=== PATIENT | female | born 1955 | race Caucasian/White ===

== ENCOUNTER 2019-11-01 00:25 | Inpatient (IN) | payer MEDICAID ==
[~2019-11-01] VITALS: Ht 167.6 cm; Wt 127.9 kg
[2019-11-01] VITALS (58 sets, daily range): BP systolic 89–165; BP diastolic 43–83
--- NOTE | ~2019-11-01 | CON ---
[address] [address] CONSULTATION Name: ABA ANDRES Room: [address] IN M.R.#: [id number] Admission: 11/01/19 Attend Phys: Juaquin Manuel Discharge: Date of : 51 Report #: [id number] THIS REPORT FOR: //name// cc: Norma Adorno MD, Kristin E. MD ~ THIS REPORT FOR: //name// CC: Juaquin Jean-Baptiste CARDIOLOGY CONSULTATION HISTORY OF PRESENT ILLNESS: I was asked by Dr. Milligan to see this 64-year-old white female in cardiology consultation for evaluation and treatment of a possible non-ST segment elevation LA. This lady unfortunately lives in a halfway. She has had multiple CVAs in the past and she is currently intubated, sedated, on a ventilator and unresponsive. She cannot give a history. She was admitted with influenza A with pneumonia and acute respiratory failure. She does have a history of essential hypertension, hypothyroidism, hypercholesterolemia and seizure disorder as best I can tell from the chart. She had a troponin of 0.23 on admission. I do not believe that I saw a BNP. Her EKG shows normal sinus rhythm. There are nonspecific ST-T abnormalities that are fairly diffuse. There is abnormal R-wave progression and an old anterior infarct cannot be excluded. The computer called an old inferior infarct; however, I see R waves in front of all of the QRSs in 2, 3, and aVF, although they are quite small in 3 as well as aVF. There is clearly late transition in the precordial R-wave. There have not been any further troponins reported at this point, however, I did order some more. There is no record of whether or not she complained of chest pain. Additionally, her acute respiratory failure is complicated by shock. She has been getting fluids and Levophed to support her blood pressure. She is only requiring a small amount of Levophed, however. PAST MEDICAL HISTORY: Otherwise as described above. REVIEW OF SYSTEMS: Unobtainable. FAMILY HISTORY: Unobtainable. SOCIAL HISTORY: Unobtainable. MEDICATIONS: Her medications include hydrochlorothiazide 12.5 mg daily, levothyroxine 0.05 mg daily, aspirin 325 mg daily, vitamin D 10,000 units daily, simvastatin 20 mg at bedtime, methotrexate 2.5 mg 8 tablets weekly, and phenytoin 100 mg t.i.d. as well as various PRNs. PHYSICAL EXAMINATION: [address] [place] [address] CONSULTATION Name: ABA ANDRES Room: [address] IN M.R.#: [id number] Admission: 11/01/19 Attend Phys: Juaquin Manuel Discharge: Date of : 51 Report #: [id number] GENERAL: She presents as an elderly, well-developed, well-nourished white female, in no acute distress. HEENT: Her head is atraumatic. Eyes clear. NECK: Supple. There is no jugular venous distention or hepatojugular reflux. Thyroid is not enlarged. There is no adenopathy. SKIN: Warm and dry. Mucous membranes are moist. LUNGS: Clear to auscultation and percussion. HEART: Revealed normal first and second heart sound. There is soft S4. There is no S3. There are no murmurs, rubs, thrills, heaves or gallops. PMI is nondisplaced. ABDOMEN: Soft, flat, nontender. There are no palpable masses, no organomegaly. EXTREMITIES: Reveal no cyanosis, clubbing or edema. NEUROLOGIC: The patient was intubated, sedated, on the ventilator and unresponsive. IMPRESSION: 1. Elevated troponin, possible non-ST segment elevation myocardial infarction. 2. Status post multiple cerebrovascular accidents. 3. alf status. 4. Influenza A. 5. Pneumonia. 6. Acute respiratory failure. 7. Essential hypertension. 8. Hypothyroidism. 9. Hypercholesterolemia. 10. Seizure disorder. RECOMMENDATIONS: I would simply document the troponin elevation at this point and follow her. She is currently not a candidate for any kind of imaging. Check BNP and she may ultimately need a nuclear stress test, however, that depends on how things go. Thank you very much for asking me to see the patient. If there are any questions, please feel free to contact me. By: [id number]. Nikhil Machado MD, FACC /nt
[~2019-11-01 00:25] MED LIST: ASPIRIN EC325 M1 PO; ASPIRIN325 PO; CALCIUM 600 +1 EAC8 PO; CALCIUM 600 +1 EAC9 PO; CELEBREX 200 M200 M1 PO; CELEBREX 200 M200 MG PO; CICLOPIROX30 GM TP; CIPROFLOXACIN500 M1 PO; DILANTIN100 MG PO; DILANTIN30 MG PO; DULCOLAX5 MG PO; FOLIC ACID 1 MG1 MG PO; FOLIC ACID1 MG PO; HYDROCHLOROTH12.5 M1 PO; HYDROCHLOROTH12.5 MG PO; HYDROCHLOROTHIA25 M2 PO; HYDROCODON-ACE1 EAC1 PO; HYDROCODON-ACE1 EAC8 PO; IBUPROFEN 800800 M1 PO; LEVOTHYROXINE0.05 MG PO; LIDODERM 5%1 PATCH; LIDODERM 5%1 PATCH PO; LIDODERM 5%1 PATCH TOP; LOVENOX40 MG/0.4 SQ; METHOTREXATE 22.5 MG PO; NORCO 10-325 T1 EACH PO; NYAMYC15 GM TOP; OS-CAL ULTRA T1 EACH PO; PHENYTOIN SODI100 M3 PO; PREDNISOLONE 5 M5 M1 PO; PREDNISONE 10 M10 MG PO; PREDNISONE 5 MG5 M1 PO; RANITIDINE HCL300 M1 PO; SIMVASTATIN20 MG PO; SIMVASTATIN80 MG PO; SKELAXIN 800 M800 M1 PO; SKELAXIN 800 M800 MG PO; SYNTHROID PO; SYNTHROID50 MCG PO; TIZANIDINE HCL4 M1 PO; VITAMIN D1000 UNI1 PO; VITAMIN D32000 UNI2 PO; VOLTAREN GEL 1100 G1 TOP; ZANTAC 150MG T150 M1 PO; ZOCOR 20 MG TAB20 M1 PO; ZOFRAN ODT4 MG PO
[2019-11-01] MEDS ORDERED: MUCINEX600 MG PO (00:33)
[2019-11-01] MEDS ORDERED: CELEXA 10 MG TA10 M1 PO (00:35)
[2019-11-01] MEDS ORDERED: MIRALAX119 GM PO (00:36)
[2019-11-01] MEDS ORDERED: VITAMIN D325 MC3 PO (00:37)
[2019-11-01] MEDS ORDERED: ARTIFICIAL TEAR1510 OPHTHALMIC (00:40)
[2019-11-01 00:49] LABS: ABSOLUTE EOSINOPHILS 0.2 thou/uL (0.0-0.7); ABSOLUTE LYMPHOCYTES 4.8 thou/uL (0.8-5.3); ABSOLUTE NEUTROPHILS 5.8 thou/uL (1.6-8.1); BASOPHILS 0.2 %; EOSINOPHILS 1.3 %; HEMATOCRIT 41.4 % (37.0-47.0); HEMOGLOBIN 13.3 gm/dL (12.0-15.0); LYMPHOCYTES 40.5 %; MCH 29.7 pg (26.0-34.0); MCHC 32.1 g/dL (28.0-37.0); MCV 92.7 fL (80.0-100.0); MONOCYTES 8.6 %; MPV 7.3 fl. (7.2-11.1); NUCLEATED RBCS 0 /100WBC; PLATELET COUNT* 190 thou/uL (150-400); POLYS 49.4 %; RBC 4.47 mil/uL (4.20-5.00); RDW-CV 15.2 % (10.5-14.5); WBC 11.8 thou/uL (4.0-11.0)
[2019-11-01 00:57] LABS: APTT 25.5 Seconds (25.0-31.3); PROTIME 10.2 Seconds (9.20-11.50)
[2019-11-01 01:11] LABS: CALCIUM 8.2 mg/dL (8.5-10.1); CREATININE 0.4 mg/dL (0.6-1.3); POTASSIUM 4.1 mmol/L (3.5-5.1)
[2019-11-01 01:21] LABS: ALBUMIN 2.7 g/dL (3.4-5.0); MAGNESIUM 1.9 mg/dL (1.8-2.4); TOTAL BILIRUBIN 0.1 mg/dL (<0.1-1.0); TOTAL PROTEIN 6.6 g/dL (6.4-8.2)
[2019-11-01 02:03] LABS: URINE BILIRUBIN NEGATIVE (Negative); URINE BLOOD 2+ (Negative); URINE CLARITY CLEAR; URINE COLOR YELLOW; URINE GLUCOSE-RANDOM TRACE (Negative); URINE KETONES NEGATIVE (Negative); URINE LEUKOCYTES-REFLEX NEGATIVE (Negative); URINE PROTEIN 2+ (Negative); URINE SPECIFIC GRAVITY >= 1.030 (1.005-1.030); URINE UROBILINOGEN 0.2 E.U./dl (0.2-1.0)
[2019-11-01 02:04] LABS: URINE NITRITE-REFLEX POSITIVE (Negative)
[2019-11-01 02:19] LABS: BE -3.1 mmol/L (-2 to +3)
[2019-11-01 02:21] LABS: PCO2 54.1 mmHg (35.0-45.0); pH 7.269 (7.340-7.450)
[2019-11-01 02:22] LABS: PO2 139.7 mmHg (75.0-100.0)
[2019-11-01 02:40] LABS: HYALINE CASTS 0-3 Few /LPF (None Seen); SQUAMOUS 4-10 Moderate /LPF (0-3)
[2019-11-01 02:41] LABS: BACTERIA-REFLEX >30 Many /HPF (None Seen); CRYSTALS None Seen /LPF (None Seen); URINE WBC-REFLEX 6-15 Few /HPF (0-5)
[2019-11-01 06:35] LABS: INFLUENZA A ANTIGEN Positive (Negative); INFLUENZA B ANTIGEN Negative (Negative)
[2019-11-01 09:24] LABS: CHOLESTEROL 136 mg/dL (<200); HDL CHOLESTEROL 55 mg/dL (>40); LDL CHOLESTEROL 55 mg/dL (<100); TC:HDL 2.5 Ratio (Not establshd); TRIGLYCERIDE 132 mg/dL (<150); VLDL 26 mg/dL (<40)
[2019-11-01 09:25] LABS: SERUM ASSESSMENT Clear
[2019-11-01 10:29] LABS: BE 1.3 mmol/L (-2 to +3); PCO2 36.9 mmHg (35.0-45.0); PO2 81.9 mmHg (75.0-100.0); pH 7.451 (7.340-7.450)
[2019-11-01 17:39] LABS: BE 0.3 mmol/L (-2 to +3); PCO2 VENOUS 52.3 mmHg (41.0-51.0); PO2 VENOUS 97.6 mmHg (35.0-45.0)
[2019-11-01 22:24] LABS: BE -0.1 mmol/L (-2 to +3); PCO2 42.5 mmHg (35.0-45.0); PO2 95.3 mmHg (75.0-100.0); pH 7.388 (7.340-7.450)
[2019-11-02] VITALS (48 sets, daily range): BP systolic 86–145; BP diastolic 49–98
[2019-11-02 03:51] LABS: HEMATOCRIT 30.3 % (37.0-47.0); MCH 30.5 pg (26.0-34.0); MCHC 33.7 g/dL (28.0-37.0); MCV 90.5 fL (80.0-100.0); MPV 7.1 fl. (7.2-11.1); RBC 3.35 mil/uL (4.20-5.00); RDW-CV 14.8 % (10.5-14.5); WBC 5.5 thou/uL (4.0-11.0)
[2019-11-02 04:06] LABS: HEMOGLOBIN 10.2 gm/dL (12.0-15.0)
[2019-11-02 04:16] LABS: ALBUMIN 1.7 g/dL (3.4-5.0); ALKALINE PHOSPHATASE 79 U/L (46-116); ANION GAP 4 mmol/L (7-16); BUN 9 mg/dL (7-18); CALCIUM 6.3 mg/dL (8.5-10.1); CHLORIDE 107 mmol/L (98-107); CO2 31 mmol/L (21-32); CREATININE 0.4 mg/dL (0.6-1.3); GLUCOSE 124 mg/dL (70-99); MAGNESIUM 1.4 mg/dL (1.8-2.4); SGOT 20 U/L (15-37); SGPT 19 U/L (30-65); SODIUM 142 mmol/L (136-145); TOTAL BILIRUBIN 0.1 mg/dL (<0.1-1.0); TROPONIN-I LEVEL <0.06 ng/mL (<0.06)
[2019-11-02 09:41] LABS: BE 0 mmol/L (-2 to +3); PCO2 44.9 mmHg (35.0-45.0); PO2 116.7 mmHg (75.0-100.0); pH 7.372 (7.340-7.450)
--- NOTE | 2019-11-02 15:04 | EKG ---
[place] [address] ELECTROCARDIOGRAM REPORT Name: ABA ANDRES Room: [address] ADM IN M.R.#: [id number] Admission: 11/01/19 Attend Phys: Juaquin krishna Sa Discharge: Date of : 51 Date of Service: 11/01/19 0040 Report #: [id number] THIS REPORT FOR: //name// [facility] ED Test Date: 2019-11-01 Test Time: 00:40:08 Pat Name: ABA ANDRES Department: Room: [facility] Gender: F Nanny Babysitter: RASHAUN : 1955 Requested By: Desmond Ribera Order Number: [id number] MD: Nikhil Machado Measurements Intervals [place] Rate: 106 P: 40 TN: 202 QRS: -15 QRSD: 97 T: 83 QT: 323 QTc: 429 Interpretive Statements Sinus tachycardia Abnormal R-wave progression, late transition Inferior infarct, old Lateral leads are also involved Compared to ECG 08/27/2015 08:56:21 Myocardial infarct finding now present Sinus rhythm no longer present Electronically Signed On 11-02-2019 15:03:12 FASHION EDITOR by Nikhil Machado [email or web address] <ELECTRONICALLY SIGNED> By: Lurdes Machado MD, [facility] 11/02/19 1503 Lurdes Machado MD, [facility] /EPI
[2019-11-03] VITALS (39 sets, daily range): BP systolic 117–171; BP diastolic 55–86
[2019-11-03 10:26] LABS: ABSOLUTE EOSINOPHILS 0.1 thou/uL (0.0-0.7); ABSOLUTE LYMPHOCYTES 1.7 thou/uL (0.8-5.3); ABSOLUTE MONOCYTES 0.5 thou/uL (0.0-1.2); ABSOLUTE NEUTROPHILS 4.4 thou/uL (1.6-8.1); BASOPHILS 0.5 %; HEMOGLOBIN 9.9 gm/dL (12.0-15.0); LYMPHOCYTES 25.2 %; MCH 30.2 pg (26.0-34.0); MCHC 33.2 g/dL (28.0-37.0); MONOCYTES 7.3 %; MPV 7.8 fl. (7.2-11.1); NUCLEATED RBCS 0 /100WBC; PLATELET COUNT* 166 thou/uL (150-400); WBC 6.6 thou/uL (4.0-11.0)
[2019-11-03 10:35] LABS: CALCIUM 6.7 mg/dL (8.5-10.1); CREATININE 0.4 mg/dL (0.6-1.3); MAGNESIUM 2.3 mg/dL (1.8-2.4); TOTAL BILIRUBIN 0.2 mg/dL (<0.1-1.0); TOTAL PROTEIN 5.4 g/dL (6.4-8.2)
--- NOTE | 2019-11-03 16:43 | EKG ---
[place] [address] ELECTROCARDIOGRAM REPORT Name: ABA ANDRES Room: [address] ADM IN M.R.#: [id number] Admission: 11/01/19 Attend Phys: Juaquin krishna Sa Discharge: Date of : 51 Date of Service: 11/02/19 0922 Report #: [id number] THIS REPORT FOR: //name// [facility] Test Date: 2019-11-02 Test Time: 09:22:16 Pat Name: ABA ANDRES Department: Room: [address] Gender: F Warp Hauler: M : 1955 Requested By: Lurdes Machado Order Number: [id number] Reading MD: Marc Frias Measurements Intervals [place] Rate: 57 P: 33 [place]: 203 QRS: 2 QRSD: 104 T: 9 QT: 481 QTc: 469 Interpretive Statements Sinus rhythm Low voltage, precordial leads Abnormal R-wave progression, early transition Compared to ECG 11/01/2019 00:40:08 Low QRS voltage now present Sinus tachycardia no longer present Myocardial infarct finding no longer present Electronically Signed On 11-03-2019 16:42:29 LEAD HOUSEKEEPER by Marc Frias [email or web address] <ELECTRONICALLY SIGNED> By: Marc Frias MD, [facility] 11/03/19 1642 1 1 Marc Frias MD, [facility] /EPI
--- NOTE | 2019-11-03 17:07 | 2DMMODE ---
[place] [address] 2 D/M-MODE ECHOCARDIOGRAM Name: ABA ANDRES Room: [address] IN M.R.#: [id number] Admission: 11/01/19 Attend Phys: Juaquin krishna Sa Discharge: Date of : 51 Date of Service: 11/03/19 1706 Report #: [id number] THIS REPORT FOR: cc: Norma Adorno MD, Kristin E. MD Holkins,Marc Gregorio MD [facility] ~ APPROVED REPORT Study performed: 11/03/2019 14:36:28 EXAM: Comprehensive 2D, Doppler, and color-flow Echocardiogram BSA: 2.32 HR: 98 bpm BP: 148/73 mmHg Other Information Study Quality: Technically Difficult Technically limited study due to uncooperative patient, body habitus. Indications Hypotension Dyspnea 2D Dimensions IVSd: 11.53 (7-11mm) LVOT Diam: 24.03 (18-24mm) LVDd: 38.15 mm PWd: 14.32 (7-11mm) Ascending Ao: 29.28 (22-36mm) LVDs: 25.86 (25-40mm) Aortic Root: 27.99 mm Volumes Left Atrial Volume (Systole) LA ESV Index: 17.70 mL/m2 Aortic Valve AoV Peak Aayush.: 1.31 m/s AO Peak Gr.: 6.91 mmHg LVOT Max P.40 mmHg AO Mean Gr.: 4.27 mmHg LVOT Mean P.36 mmHg LVOT Max V: 1.05 m/s AO V2 VTI: 27.05 cm LVOT Mean V: 0.72 m/s EDNA (VTI): 2.44 cm2 LVOT V1 VTI: 14.56 [place] [address] 2 D/M-MODE ECHOCARDIOGRAM Name: ABA ANDRES Room: [address] IN .R.#: [id number] Admission: 11/01/19 Attend Phys: Juaquin krishna Sa Discharge: Date of : 51 Date of Service: 11/03/19 1706 Report #: [id number] Mitral Valve E/A Ratio: 1.06 MV Decel. Time: 261.06 ms MV E Max Aayush.: 0.91 m/s MV PHT: 75.71 ms MVA (PHT): 2.91 cm2 TDI E/Lateral E': 6.50 E/Medial E': 5.69 Medial E' Aayush.: 0.16 m/s Lateral E' Aayush.: 0.14 m/s Pulmonary Valve PV Peak Aayush.: 1.14 m/s PV Peak Gr.: 5.17 mmHg Tricuspid Valve RAP Estimate: 5.00 mmHg TR Peak Gr.: 52.35 mmHg RVSP: 57.35 mmHg PA Pressure: 57.35 mmHg Left Ventricle The left ventricle is normal size. There is normal LV segmental wall motion. There is normal left ventricular wall thickness. Left ventricular systolic function is normal. The left ventricular ejection fraction is within the normal range. LVEF is 60-65%. Grade I - abnormal relaxation pattern. Right Ventricle The right ventricle is normal size. The right ventricular systolic function is normal. Atria The left atrium size is normal. The right atrium size is normal. Aortic Valve The aortic valve is normal in structure. No aortic regurgitation is present. There is no aortic valvular stenosis. Mitral Valve The mitral valve is normal in structure. Trace mitral regurgitation. No evidence of mitral valve stenosis. Tricuspid Valve The tricuspid valve is normal in structure. Mild tricuspid regurgitation. Moderate pulmonary [place] [address] 2 D/M-MODE ECHOCARDIOGRAM Name: ABA ANDRES Room: [address] IN M.R.#: [id number] Admission: 11/01/19 Attend Phys: Juaquin krishna Sa Discharge: Date of : 51 Date of Service: 11/03/19 1706 Report #: [id number] Pulmonic Valve The pulmonary valve is normal in structure. There is no pulmonic valvular regurgitation. Great Vessels The aortic root is normal in size. IVC is not visualized. Pericardium There is no pericardial effusion. <Conclusion> The left ventricle is normal size. There is normal left ventricular wall thickness. Left ventricular systolic function is normal. The left ventricular ejection fraction is within the normal range. LVEF is 60-65%. Grade I - abnormal relaxation pattern. The right ventricle is normal size. The left atrium size is normal. The aortic valve is normal in structure. The mitral valve is normal in structure. Trace mitral regurgitation. Mild tricuspid regurgitation. Moderate pulmonary hypertension. There is no pericardial effusion. There is normal LV segmental wall motion. <ELECTRONICALLY SIGNED> By: Marc Frias MD, FACC 11/03/191705 05 05 Marc Frias MD, FACC /INF
[2019-11-04] VITALS (14 sets, daily range): BP systolic 122–152; BP diastolic 58–95
[2019-11-04 05:11] LABS: HEMATOCRIT 30.9 % (37.0-47.0); HEMOGLOBIN 10.5 gm/dL (12.0-15.0); MCH 30.2 pg (26.0-34.0); MCV 88.9 fL (80.0-100.0); MPV 7.2 fl. (7.2-11.1); RBC 3.48 mil/uL (4.20-5.00); RDW-CV 14.4 % (10.5-14.5)
[2019-11-04 05:40] LABS: CALCIUM 6.9 mg/dL (8.5-10.1); CREATININE 0.4 mg/dL (0.6-1.3); POTASSIUM 3.5 mmol/L (3.5-5.1)
[2019-11-05] VITALS (10 sets, daily range): BP systolic 113–138; BP diastolic 62–79
[2019-11-05 20:20] LABS: BE 6.4 mmol/L (-2 to +3); PCO2 47.5 mmHg (35.0-45.0)
[2019-11-05 20:24] LABS: PO2 223.9 mmHg (75.0-100.0)
[2019-11-05 20:27] LABS: HEMATOCRIT 32.7 % (37.0-47.0); HEMOGLOBIN 10.9 gm/dL (12.0-15.0); MCH 29.6 pg (26.0-34.0); MCHC 33.2 g/dL (28.0-37.0); MCV 89.2 fL (80.0-100.0); MPV 7.2 fl. (7.2-11.1); NUCLEATED RBCS 0 /100WBC; PLATELET COUNT* 253 thou/uL (150-400); RBC 3.67 mil/uL (4.20-5.00); RDW-CV 14.8 % (10.5-14.5); WBC 14.1 thou/uL (4.0-11.0)
[2019-11-05 20:28] LABS: INR 1.2
[2019-11-05 20:35] LABS: ALBUMIN 2.1 g/dL (3.4-5.0); CALCIUM 6.9 mg/dL (8.5-10.1); CREATININE 0.5 mg/dL (0.6-1.3); MAGNESIUM 1.7 mg/dL (1.8-2.4); POTASSIUM 3.7 mmol/L (3.5-5.1); TOTAL BILIRUBIN 0.4 mg/dL (<0.1-1.0); TOTAL PROTEIN 5.7 g/dL (6.4-8.2)
[2019-11-05 20:47] LABS: ABSOLUTE EOSINOPHILS 0.4 thou/uL (0.0-0.7); ABSOLUTE LYMPHOCYTES 1.4 thou/uL (0.8-5.3); ABSOLUTE MONOCYTES 0.6 thou/uL (0.0-1.2); ABSOLUTE NEUTROPHILS 11.7 thou/uL (1.6-8.1); CLUMPED PLTS FEW; METAMYELOCYTES 3 %; PLATELET ESTIMATE ADEQUATE
[2019-11-05 20:48] LABS: ANISOCYTOSIS 1+; HYPOCHROMASIA 1+; POLYCHROMASIA Occasional
[2019-11-06] VITALS (26 sets, daily range): BP systolic 88–153; BP diastolic 42–73
[2019-11-06 06:20] LABS: HEMATOCRIT 28.4 % (37.0-47.0); HEMOGLOBIN 10.1 gm/dL (12.0-15.0); MCH 31.6 pg (26.0-34.0); MCHC 35.5 g/dL (28.0-37.0); MPV 7.2 fl. (7.2-11.1); RBC 3.19 mil/uL (4.20-5.00); RDW-CV 14.4 % (10.5-14.5); WBC 8.1 thou/uL (4.0-11.0)
[2019-11-06 06:58] LABS: ALBUMIN 1.9 g/dL (3.4-5.0); CALCIUM 6.6 mg/dL (8.5-10.1); CREATININE 0.5 mg/dL (0.6-1.3); POTASSIUM 3.3 mmol/L (3.5-5.1); TOTAL BILIRUBIN 0.4 mg/dL (<0.1-1.0); TOTAL PROTEIN 4.9 g/dL (6.4-8.2)
[2019-11-06 15:33] LABS: BE 7.4 mmol/L (-2 to +3); PCO2 39.9 mmHg (35.0-45.0); PO2 119.5 mmHg (75.0-100.0); pH 7.509 (7.340-7.450)
[2019-11-07] VITALS (14 sets, daily range): BP systolic 122–145; BP diastolic 56–78
[2019-11-07 04:33] LABS: HEMATOCRIT 29.1 % (37.0-47.0); HEMOGLOBIN 9.9 gm/dL (12.0-15.0); MCH 30.4 pg (26.0-34.0); MCHC 34.1 g/dL (28.0-37.0); MCV 89.2 fL (80.0-100.0); MPV 6.9 fl. (7.2-11.1); RBC 3.26 mil/uL (4.20-5.00); RDW-CV 14.8 % (10.5-14.5)
[2019-11-07 04:44] LABS: CALCIUM 7.5 mg/dL (8.5-10.1); CREATININE 0.5 mg/dL (0.6-1.3)
[2019-11-07 11:55] LABS: BE 7.3 mmol/L (-2 to +3); PCO2 VENOUS 50.3 mmHg (41.0-51.0); PO2 VENOUS 62.8 mmHg (35.0-45.0)
--- NOTE | 2019-11-07 17:43 | EKG ---
[place] [address] ELECTROCARDIOGRAM REPORT Name: ABA ANDRES Room: [address] ADM IN M.R.#: [id number] Admission: 11/01/19 Attend Phys: Juaquin krishna Sa Discharge: Date of : 51 Date of Service: 11/07/19 1332 Report #: [id number] THIS REPORT FOR: //name// [facility] Test Date: 2019-11-07 Test Time: 13:32:11 Pat Name: ABA ANDRES Department: Room: [address] Gender: F Fur Vault Attendant: MAMTA : 1955 Requested By: Nick Lemos Order Number: [id number] Petra MD: Nithin Vargas Measurements Intervals [place] Rate: 106 P: 30 VT: 154 QRS: -12 QRSD: 109 T: -22 QT: 348 QTc: 463 Interpretive Statements Sinus tachycardia Low voltage, precordial leads Compared to prior EKG Sinus rhythm no longer present Electronically Signed On 11-07-2019 17:42:08 K 9 POLICE OFFICER by Nithin Vargas [email or web address] <ELECTRONICALLY SIGNED> By: Nithin Vargas MD, FACC 11/07/19 1742 1332 1332 Nithin Vargas MD, [facility] /EPI
[2019-11-08] VITALS (9 sets, daily range): BP systolic 117–152; BP diastolic 60–79
[2019-11-08 05:12] LABS: PHOSPHORUS* 1.7 mg/dL (2.5-4.9)
[2019-11-08 10:33] LABS: URINE BILIRUBIN NEGATIVE (Negative); URINE BLOOD 1+ (Negative); URINE CLARITY CLEAR; URINE COLOR YELLOW; URINE GLUCOSE-RANDOM NEGATIVE (Negative); URINE KETONES 2+ (Negative); URINE LEUKOCYTES-REFLEX NEGATIVE (Negative); URINE NITRITE-REFLEX NEGATIVE (Negative); URINE PROTEIN NEGATIVE (Negative); URINE SPECIFIC GRAVITY 1.015 (1.005-1.030); URINE UROBILINOGEN 0.2 E.U./dl (0.2-1.0)
[2019-11-08 10:41] LABS: CASTS None Seen /LPF (None Seen); CRYSTALS None Seen /LPF (None Seen); MUCUS 0-3 Light strn/LPF (None Seen); SQUAMOUS 0-3 Few /LPF (0-3); URINE RBC 3-10 Few /HPF (0-2); URINE WBC-REFLEX 0-5 Rare /HPF (0-5)
[2019-11-08 11:35] LABS: DIRECT BILIRUBIN 0.2 mg/dL (<0.1-0.3); TOTAL BILIRUBIN 0.5 mg/dL (<0.1-1.0); TOTAL PROTEIN 6.3 g/dL (6.4-8.2)
[2019-11-08 12:05] LABS: ABSOLUTE BASOPHILS 0.1 thou/uL (0.0-0.2); ABSOLUTE EOSINOPHILS 0.3 thou/uL (0.0-0.7); ABSOLUTE LYMPHOCYTES 1.5 thou/uL (0.8-5.3); ABSOLUTE MONOCYTES 1.4 thou/uL (0.0-1.2); ABSOLUTE NEUTROPHILS 6.9 thou/uL (1.6-8.1); BASOPHILS 0.7 %; EOSINOPHILS 3.3 %; HEMATOCRIT 30.3 % (37.0-47.0); HEMOGLOBIN 10.1 gm/dL (12.0-15.0); LYMPHOCYTES 14.5 %; MCH 29.8 pg (26.0-34.0); MCHC 33.3 g/dL (28.0-37.0); MCV 89.6 fL (80.0-100.0); MONOCYTES 13.6 %; MPV 7.3 fl. (7.2-11.1); NUCLEATED RBCS 0 /100WBC; PLATELET COUNT* 303 thou/uL (150-400); POLYS 67.9 %; RBC 3.38 mil/uL (4.20-5.00); WBC 10.2 thou/uL (4.0-11.0)
[2019-11-08 12:15] LABS: ALBUMIN 2.1 g/dL (3.4-5.0); CALCIUM 7.7 mg/dL (8.5-10.1); CREATININE 0.5 mg/dL (0.6-1.3); POTASSIUM 3.8 mmol/L (3.5-5.1); TOTAL BILIRUBIN 0.5 mg/dL (<0.1-1.0); TOTAL PROTEIN 6.4 g/dL (6.4-8.2)
--- NOTE | 2019-11-08 12:33 | CON ---
[address] [address] CONSULTATION Name: ABA ANDRES Room: [address] IN M.R.#: [id number] Admission: 11/01/19 Attend Phys: Juaquin Manuel Discharge: Date of : 51 Report #: [id number] THIS REPORT FOR: //name// cc: Norma Adorno MD, Kristin E. MD ~ THIS REPORT FOR: //name// CC: Juaquin Jean-Baptiste DATE OF SERVICE: 11/08/2019 INFECTIOUS DISEASE CONSULTATION ATTENDING PHYSICIAN: Breezy Milligan MD REASON FOR EVALUATION: Nosocomial fevers, recent respiratory failure due to aspiration pneumonitis. HISTORY OF PRESENT ILLNESS: Chart reviewed, the patient examined. 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 She presented to the Emergency Room from the facility with confirmation of positive influenza A as well as suspected aspiration with pneumonitis. She was initially intubated, she was extubated, she was sent to the floor where she was suspected to have additional aspiration. She was reintubated and currently resides in the ICU. She is on nasal cannula oxygen at this point. She does have frequent coughs. It is clear she has difficulty clearing her secretions. She has been on broad-spectrum antimicrobial therapy with cefepime as well as levofloxacin; however, is noted to have persistent fevers with very little variation over the course of the last 24 hours in the 100.2-100.8 range. It is not clear to her that she is having fevers. It is notable she has got borderline tachycardia. She does have a urinary catheter in place. Most recent lactic acid of 0.9. Urinalysis showed rare white wbc's. Chest x-ray showed patchy left basilar pneumonitis. ALLERGIES: TO PENICILLIN; SHE DESCRIBES LIGHTHEADEDNESS, TETANUS, CODEINE, FLUCONAZOLE, AZITHROMYCIN. CURRENT MEDICATIONS: Includes levothyroxine, pantoprazole, enoxaparin, levofloxacin, guaifenesin, phenytoin, ipratropium-albuterol inhaler, furosemide, aspirin, citalopram, cefepime. PAST MEDICAL HISTORY: As described above, closed head injury with quadriplegia as an adolescent, history of hypertension and seizures. SOCIAL HISTORY: Nonsmoker. No ethanol[place] [address] CONSULTATION Name: ABA ANDRES Room: [address] IN [facility]#: [id number] Admission: 11/01/19 Attend Phys: Juaquin Manuel Discharge: Date of : 51 Report #: [id number] FAMILY HISTORY: Noncontributory. REVIEW OF SYSTEMS: As above. Denies any significant gastrointestinal-related complaints. She does admit to hurting all over, cannot be more specific. PHYSICAL EXAMINATION: VITAL SIGNS: Temperature 100.4 most recently, pulse 106, respirations 16, blood pressure 144/71, saturation 97%, is on supplemental oxygen per nasal cannula. She is obese. HEENT: Normocephalic. Extraocular muscles intact. NECK: Supple, is quite thick. LUNGS: Scattered coarse breath sounds. She has got some upper airway retained secretions that she is unable to clear. HEART: Tachycardic. I do not appreciate a murmur. ABDOMEN: Mildly distended, soft. There are no peritoneal signs. GENITOURINARY AND RECTAL: Deferred. LABORATORY DATA: Urinalysis 0-5 white cells. Chest x-ray as described above, left-sided basilar pneumonitis. Lactic acid 0.9. Prealbumin of 12.1. Electrolytes from yesterday: Sodium 133, potassium 4.0, chloride 99, bicarb is 32, anion gap of 8, BUN and creatinine 18 and 0.5. CBC: White count of 8.0, H and H 9.9 and 29.1, platelets of 248. Procalcitonin from 2 days ago elevated at 31.80. ABGs while intubated sufficient. BNP previously 4455. Blood cultures collected on the are sterile thus far. ASSESSMENT: Nosocomial fevers in the setting of a patient with high likelihood of aspiration. Does have evidence radiographically of pneumonitis, perhaps ongoing sepsis. We will adjust treatment protocol. She remains quite tenuous at this point. Discussed with the patient and family. <ELECTRONICALLY SIGNED> By: Manuel Campuzano MD 11/08/19 1233 1055 1131Manuel Campuzano MD /nt
[2019-11-09 00:30] VITALS: BP 145/72
[2019-11-09 04:30] VITALS: BP 134/58
[2019-11-09 07:45] VITALS: BP 151/73
[2019-11-09 11:10] VITALS: BP 160/95
[2019-11-09 17:19] VITALS: BP 120/65
[2019-11-09 20:00] VITALS: BP 128/65
[2019-11-10 00:23] VITALS: BP 147/68
[2019-11-10 05:45] VITALS: BP 133/61
[2019-11-10 06:41] LABS: CALCIUM 8.1 mg/dL (8.5-10.1); CREATININE 0.4 mg/dL (0.6-1.3); MAGNESIUM 2.3 mg/dL (1.8-2.4); POTASSIUM 3.1 mmol/L (3.5-5.1)
[2019-11-10 08:00] VITALS: BP 119/56
[2019-11-10 12:12] VITALS: BP 133/70
[2019-11-10 17:33] VITALS: BP 133/69
[2019-11-10 19:15] VITALS: BP 156/66
[2019-11-11] VITALS: BP 155/76
[2019-11-11 04:00] VITALS: BP 161/85
[2019-11-11 06:19] LABS: CALCIUM 8.2 mg/dL (8.5-10.1); CREATININE 0.4 mg/dL (0.6-1.3); MAGNESIUM 2.2 mg/dL (1.8-2.4)
[2019-11-11 06:22] LABS: POTASSIUM 2.8 mmol/L (3.5-5.1)
[2019-11-11 11:30] VITALS: BP 149/86
[2019-11-11 16:22] VITALS: BP 142/78
[2019-11-11 20:00] VITALS: BP 122/64
[2019-11-12 00:31] VITALS: BP 136/75
[2019-11-12 04:16] VITALS: BP 100/46
[2019-11-12 05:01] LABS: CALCIUM 8.1 mg/dL (8.5-10.1); CREATININE 0.6 mg/dL (0.6-1.3); MAGNESIUM 2.3 mg/dL (1.8-2.4)
[2019-11-12 05:08] LABS: POTASSIUM 3.9 mmol/L (3.5-5.1)
[2019-11-12 08:00] VITALS: BP 109/63
[2019-11-12 12:00] VITALS: BP 121/100
[2019-11-12 16:00] VITALS: BP 130/68
[2019-11-12 20:00] VITALS: BP 135/79
[2019-11-13 00:17] VITALS: BP 123/61
[2019-11-13 04:52] VITALS: BP 117/63
[2019-11-13 04:58] LABS: ABSOLUTE EOSINOPHILS 0.5 thou/uL (0.0-0.7); ABSOLUTE LYMPHOCYTES 2.4 thou/uL (0.8-5.3); ABSOLUTE MONOCYTES 1.1 thou/uL (0.0-1.2); ABSOLUTE NEUTROPHILS 6.1 thou/uL (1.6-8.1); BASOPHILS 0.4 %; EOSINOPHILS 4.7 %; HEMATOCRIT 27.6 % (37.0-47.0); LYMPHOCYTES 23.8 %; MCH 29.5 pg (26.0-34.0); MCHC 32.6 g/dL (28.0-37.0); MCV 90.4 fL (80.0-100.0); MONOCYTES 11.3 %; MPV 6.5 fl. (7.2-11.1); NUCLEATED RBCS 0 /100WBC; PLATELET COUNT* 455 thou/uL (150-400); POLYS 59.8 %; RBC 3.05 mil/uL (4.20-5.00); RDW-CV 14.9 % (10.5-14.5); WBC 10.2 thou/uL (4.0-11.0)
[2019-11-13 05:37] LABS: ALBUMIN 1.9 g/dL (3.4-5.0); CALCIUM 8.2 mg/dL (8.5-10.1); CREATININE 0.5 mg/dL (0.6-1.3); POTASSIUM 3.7 mmol/L (3.5-5.1); TOTAL BILIRUBIN 0.2 mg/dL (<0.1-1.0)
[2019-11-13 09:06] VITALS: BP 125/59
[2019-11-13 11:10] VITALS: BP 125/59
[2019-11-13] MEDS ORDERED: METHOTREXATE 22.5 MG PO (11:22)
[2019-11-13 12:00] VITALS: BP 133/44
[2019-11-13] MEDS ORDERED: CEFDINIR300 MG PO (14:05)
== END 2019-11-13 15:34 | DRG 871 ==
LOC: M.ERS 00:25 → M.2W 02:23 → M.ICU 02:23 → M.TBA-ER 02:23 → M.ICU 03:54 → M.3W 11-04 20:16 → M.ICU 11-05 18:59 → M.2W 11-08 19:30
PROVIDERS: Emergency Medicine Emergency Medical Services; Internal Medicine; Internal Medicine Pulmonary Disease; Specialist; ADMIT Family Medicine
PROC: 02HV33Z Insertion of Infusion Device into Superior Vena Cava, Percutaneous Approach (ICD-10-PCS; principal; 2019-11-01)
PROC: 0BH17EZ Insertion of Endotracheal Airway into Trachea, Via Natural or Artificial Opening (ICD-10-PCS; principal; 2019-11-01)
PROC: 5A1945Z Respiratory Ventilation, 24-96 Consecutive Hours (ICD-10-PCS; principal; 2019-11-01)
PROC: 0BJ08ZZ Inspection of Tracheobronchial Tree, Via Natural or Artificial Opening Endoscopic (ICD-10-PCS; 2019-11-05)
DX: A41.89 Other specified sepsis (principal); J10.00 Influenza due to other identified influenza virus with unspecified type of pneumonia; J96.00 Acute respiratory failure, unspecified whether with hypoxia or hypercapnia; G82.50 Quadriplegia, unspecified; J96.01 Acute respiratory failure with hypoxia; J96.02 Acute respiratory failure with hypercapnia; R65.21 Severe sepsis with septic shock; G92 Toxic encephalopathy; I21.4 Non-ST elevation (NSTEMI) myocardial infarction; J96.21 Acute and chronic respiratory failure with hypoxia; J96.22 Acute and chronic respiratory failure with hypercapnia; J69.0 Pneumonitis due to inhalation of food and vomit; E44.0 Moderate protein-calorie malnutrition; Z68.42 Body mass index [BMI] 45.0-49.9, adult; I10 Essential (primary) hypertension; E03.9 Hypothyroidism, unspecified; E78.00 Pure hypercholesterolemia, unspecified; G40.909 Epilepsy, unspecified, not intractable, without status epilepticus; Y95 Nosocomial condition; F32.9 Major depressive disorder, single episode, unspecified; E66.01 Morbid (severe) obesity due to excess calories; R73.9 Hyperglycemia, unspecified; M06.9 Rheumatoid arthritis, unspecified; B96.20 Unspecified Escherichia coli [E. coli] as the cause of diseases classified elsewhere; J10.1 Influenza due to other identified influenza virus with other respiratory manifestations; M48.02 Spinal stenosis, cervical region; Z96.659 Presence of unspecified artificial knee joint; N30.91 Cystitis, unspecified with hematuria; Z66 Do not resuscitate; Z79.899 Other long term (current) drug therapy; Z79.82 Long term (current) use of aspirin; Z88.8 Allergy status to other drugs, medicaments and biological substances; Z88.0 Allergy status to penicillin; Z88.7 Allergy status to serum and vaccine; Z88.6 Allergy status to analgesic agent; Z79.1 Long term (current) use of non-steroidal anti-inflammatories (NSAID); Z86.73 Personal history of transient ischemic attack (TIA), and cerebral infarction without residual deficits; Z79.51 Long term (current) use of inhaled steroids; Z88.1 Allergy status to other antibiotic agents; Z74.01 Bed confinement status; Z23 Encounter for immunization

== ENCOUNTER → 2021-01-18 | Outpatient (CLI) | payer MEDICAID ==
[~2021-01-18] MED LIST changes: +ARTIFICIAL TEAR1510 OPHTHALMIC; +CEFDINIR300 MG PO; +CELEXA 10 MG TA10 M1 PO; +MIRALAX119 GM PO; +MUCINEX600 MG PO; +VITAMIN D325 MC3 PO
--- NOTE | 2021-01-18 11:10 | 2DMMODE ---
[place] [address] 2 D/M-MODE ECHOCARDIOGRAM Name: ABA ANDRES Room: [facility]#: [id number] Admission: 01/18/21 Attend Phys: Roberto Galvan MD Discharge: Date of : 51 Date of Service: 01/18/21 1110 Report #: [id number] THIS REPORT FOR: cc: Roberto Galvan MD, Dennis R MD Liston, Michael J. MD [facility] ~ APPROVED REPORT Study performed: 01/18/2021 09:49:25 EXAM: Comprehensive 2D, Doppler, and color-flow Echocardiogram Patient Location: Out-Patient BSA: 2.30 HR: 62 bpm BP: 152/90 mmHg Other Information Study Quality: Fair Technically limited study due to inability to position patient. Indications Peripheral Edema 2D Dimensions IVSd: 12.04 (7-11mm) LVOT Diam: 20.18 (18-24mm) LVDd: 41.50 mm PWd: 10.06 (7-11mm) Ascending Ao: 34.08 (22-36mm) LVDs: 26.61 (25-40mm) Aortic Root: 27.74 mm Volumes Left Atrial Volume (Systole) LA ESV Index: 12.10 mL/m2 Aortic Valve AoV Peak Aayush.: 0.92 m/s AO Peak Gr.: 3.36 mmHg LVOT Max P.93 mmHg AO Mean Gr.: 1.92 mmHg LVOT Mean P.88 mmHg LVOT Max V: 0.69 m/s AO V2 VTI: 20.32 cm LVOT Mean V: 0.43 m/s EDNA (VTI): 2.36 cm2 LVOT V1 VTI: 15.03 [place] [address] 2 D/M-MODE ECHOCARDIOGRAM Name: ABA ANDRES Room: [facility]#: [id number] Admission: 01/18/21 Attend Phys: Roberto Galvan MD Discharge: Date of : 51 Date of Service: 01/18/21 1110 Report #: [id number] Mitral Valve E/A Ratio: 0.69 MV Decel. Time: 281.78 ms MV E Max Aayush.: 0.44 m/s MV PHT: 81.72 ms MVA (PHT): 2.69 cm2 TDI E/Lateral E': 6.29 E/Medial E': 6.29 Medial E' Aayush.: 0.07 m/s Lateral E' Aayush.: 0.07 m/s Pulmonary Valve PV Peak Aayush.: 0.94 m/s PV Peak Gr.: 3.57 mmHg Left Ventricle The left ventricle is normal size. There is normal LV segmental wall motion. There is normal left ventricular wall thickness. Left ventricular systolic function is normal. LVEF is 55-60%. Grade I - abnormal relaxation pattern. Right Ventricle The right ventricle is normal size. The right ventricular systolic function is normal. Atria The left atrium size is normal. The right atrium size is normal. Aortic Valve The aortic valve is normal in structure. No aortic regurgitation is present. There is no aortic valvular stenosis. Mitral Valve The mitral valve is normal in structure. There is no mitral valve regurgitation noted. No evidence of mitral valve stenosis. Tricuspid Valve The tricuspid valve is normal in structure. There is no tricuspid valve regurgitation noted. Pulmonic Valve The pulmonary valve is normal in structure. There is no pulmonic valvular regurgitation[place] [address] 2 D/M-MODE ECHOCARDIOGRAM Name: ABA ANDRES Room: [facility]#: [id number] Admission: 01/18/21 Attend Phys: Roberto Galvan MD Discharge: Date of : 51 Date of Service: 01/18/21 1110 Report #: [id number] The aortic root is normal in size. IVC is normal in size and collapses >50% with inspiration. Pericardium There is no pericardial effusion. <Conclusion> The left ventricle is normal size. There is normal left ventricular wall thickness. Left ventricular systolic function is normal. LVEF is 55-60%. Grade I - abnormal relaxation pattern. IVC is normal in size and collapses >50% with inspiration. <ELECTRONICALLY SIGNED> By: Nithin Vargas MD, FACC 01/18/21 1110 1110 111 Nithin Vargas MD, FACC /INF
== END ==
LOC: M.CRD 09:50
PROVIDERS: ATTEND Internal Medicine Geriatric Medicine
DX: R60.9 Edema, unspecified (principal)

== ENCOUNTER 2021-02-02 00:59 | Inpatient (IN) | payer MEDICAID ==
[~2021-02-02] VITALS: Ht 157.5 cm; Wt 122.5 kg
[2021-02-02 01:07] VITALS: BP 142/99
[2021-02-02] MEDS ORDERED: NEURONTIN600 MG PO (01:20)
[2021-02-02] MEDS ORDERED: TYLENOL325 MG PO (01:22)
[2021-02-02] MEDS ORDERED: CELEXA 10 MG TA10 M1 PO (01:23)
[2021-02-02] MEDS ORDERED: VITAMIN C1000 MG PO (01:23)
[2021-02-02] MEDS ORDERED: ZINC50 M1 PO (01:24)
[2021-02-02] MEDS ORDERED: NYSTATIN 100,0015 G1 TOP (01:26)
[2021-02-02 02:05] LABS: URINE BILIRUBIN NEGATIVE (Negative); URINE BLOOD TRACE (Negative); URINE CLARITY CLEAR; URINE COLOR YELLOW; URINE GLUCOSE-RANDOM NEGATIVE (Negative); URINE KETONES NEGATIVE (Negative); URINE LEUKOCYTES-REFLEX TRACE (Negative); URINE PROTEIN NEGATIVE (Negative); URINE UROBILINOGEN 0.2 E.U./dl (0.2-1.0)
[2021-02-02 02:14] LABS: URINE NITRITE-REFLEX POSITIVE (Negative)
[2021-02-02 02:30] LABS: ABSOLUTE EOSINOPHILS 0.4 thou/uL (0.0-0.7); ABSOLUTE LYMPHOCYTES 2.3 thou/uL (0.8-5.3); ABSOLUTE MONOCYTES 0.6 thou/uL (0.0-1.2); ABSOLUTE NEUTROPHILS 3.7 thou/uL (1.6-8.1); BASOPHILS 0.4 %; EOSINOPHILS 6.3 %; HEMATOCRIT 39.1 % (37.0-47.0); HEMOGLOBIN 12.7 gm/dL (12.0-15.0); LYMPHOCYTES 32.5 %; MCH 27.9 pg (26.0-34.0); MCHC 32.5 g/dL (28.0-37.0); MCV 85.7 fL (80.0-100.0); MONOCYTES 8.2 %; MPV 6.8 fl. (7.2-11.1); NUCLEATED RBCS 0 /100WBC; PLATELET COUNT* 257 thou/uL (150-400); POLYS 52.6 %; RBC 4.56 mil/uL (4.20-5.00); RDW-CV 17.4 % (10.5-14.5); WBC 7.1 thou/uL (4.0-11.0)
[2021-02-02 02:35] LABS: BACTERIA-REFLEX >30 Many /HPF (None Seen); CASTS None Seen /LPF (None Seen); CRYSTALS None Seen /LPF (None Seen); SQUAMOUS 4-10 Moderate /LPF (0-3); URINE RBC 0-2 Rare /HPF (0-2); URINE WBC-REFLEX 0-5 Rare /HPF (0-5)
[2021-02-02 02:40] LABS: CALCIUM 8.1 mg/dL (8.5-10.1); CREATININE 0.4 mg/dL (0.6-1.3)
[2021-02-02 02:41] LABS: POTASSIUM 2.9 mmol/L (3.5-5.1)
[2021-02-02 02:52] LABS: ALBUMIN 2.8 g/dL (3.4-5.0); MAGNESIUM 1.9 mg/dL (1.8-2.4); TOTAL BILIRUBIN 0.1 mg/dL (<0.1-1.0); TOTAL PROTEIN 7.1 g/dL (6.4-8.2)
[2021-02-02 04:30] VITALS: BP 132/67
[2021-02-02 04:33] VITALS: BP 126/66
[2021-02-02 08:00] VITALS: BP 138/91
--- NOTE | 2021-02-02 11:36 | EKG ---
[place] [address] ELECTROCARDIOGRAM REPORT Name: ABA ANDRES Room: [address] ADM IN M.R.#: [id number] Admission: 02/02/21 Attend Phys: Sammie Cho, Discharge: Date of : 51 Date of Service: 02/02/21 0106 Report #: [id number] THIS REPORT FOR: //name// [facility] ED Test Date: 2021-02-02 Test Time: 01:06:59 Pat Name: ABA ANDRES Department: Room: [address] Gender: F Bunch Trimmer Mold: DT : 1955 Requested By: Sammie Cho Order Number: [id number] Reading MD: Paul Fitzpatrick Measurements Intervals [place] Rate: 84 P: 9 [place]: 191 QRS: -26 QRSD: 122 T: 40 QT: 379 QTc: 449 Interpretive Statements Sinus rhythm late transition Nonspecific intraventricular conduction delay Borderline repolarization abnormality Baseline wander in lead(s) V1 Compared to ECG 11/07/2019 13:32:11 Sinus tachycardia no longer present Electronically Signed On 02-02-2021 11:36:15 CDT by Paul Fitzpatrick [email or web address] <ELECTRONICALLY SIGNED> By: Paul Fitzpatrick MD, [facility] 02/02/21 1136 5 Paul Fitzpatrick MD, [facility] /EPI
[2021-02-02 17:23] VITALS: BP 170/94
[2021-02-02 20:12] VITALS: BP 141/68
[2021-02-03 00:05] VITALS: BP 135/79
[2021-02-03 04:53] LABS: HEMATOCRIT 38.7 % (37.0-47.0); HEMOGLOBIN 12.5 gm/dL (12.0-15.0); MCH 27.7 pg (26.0-34.0); MCHC 32.3 g/dL (28.0-37.0); MCV 85.7 fL (80.0-100.0); MPV 6.8 fl. (7.2-11.1); RBC 4.52 mil/uL (4.20-5.00); RDW-CV 17.1 % (10.5-14.5); WBC 6.3 thou/uL (4.0-11.0)
[2021-02-03 05:07] LABS: CREATININE 0.3 mg/dL (0.6-1.3); POTASSIUM 3.6 mmol/L (3.5-5.1)
[2021-02-03 08:05] VITALS: BP 159/63
[2021-02-03 16:00] VITALS: BP 137/65
[2021-02-03 19:32] VITALS: BP 129/81
[2021-02-04 07:35] VITALS: BP 137/81
[2021-02-04] MEDS ORDERED: CEFDINIR300 MG PO (12:16)
== END 2021-02-04 14:45 | DRG 689 ==
LOC: M.ERS 00:59 → M.TBA-ER 02:31 → M.ORTHSURG 04:37
PROVIDERS: Internal Medicine; Personal Emergency Response Attendant; ADMIT Internal Medicine; ATTEND Internal Medicine
DX: N39.0 Urinary tract infection, site not specified (principal); G92 Toxic encephalopathy; Z68.42 Body mass index [BMI] 45.0-49.9, adult; I10 Essential (primary) hypertension; F32.9 Major depressive disorder, single episode, unspecified; E66.9 Obesity, unspecified; E87.6 Hypokalemia; Z20.822 Contact with and (suspected) exposure to COVID-19; Z88.6 Allergy status to analgesic agent; Z88.0 Allergy status to penicillin; Z88.7 Allergy status to serum and vaccine; Z88.8 Allergy status to other drugs, medicaments and biological substances; Z87.820 Personal history of traumatic brain injury

== ENCOUNTER 2021-05-07 19:36 | Inpatient (IN) | payer MEDICAID ==
[~2021-05-07] VITALS: Ht 167.6 cm; Wt 125.0 kg
[2021-05-07 19:36] VITALS: BP 132/69
[~2021-05-07 19:36] MED LIST changes: +NEURONTIN600 MG PO; +NYSTATIN 100,0015 G1 TOP; +TYLENOL325 MG PO; +VITAMIN C1000 MG PO; +ZINC50 M1 PO
[2021-05-07 20:33] LABS: URINE BILIRUBIN NEGATIVE (Negative); URINE BLOOD 2+ (Negative); URINE CLARITY CLOUDY; URINE COLOR YELLOW; URINE GLUCOSE-RANDOM TRACE (Negative); URINE KETONES NEGATIVE (Negative); URINE LEUKOCYTES-REFLEX NEGATIVE (Negative); URINE NITRITE-REFLEX NEGATIVE (Negative); URINE PROTEIN 3+ (Negative); URINE SPECIFIC GRAVITY >= 1.030 (1.005-1.030); URINE UROBILINOGEN 0.2 E.U./dl (0.2-1.0)
[2021-05-07 20:38] LABS: SQUAMOUS 4-10 Moderate /LPF (0-3)
[2021-05-07 20:39] LABS: COARSE GRANULAR CASTS 0-3 Few /LPF (None Seen); CRYSTALS None Seen /LPF (None Seen); HYALINE CASTS 0-3 Few /LPF (None Seen); MUCUS 0-3 Light strn/LPF (None Seen); URINE RBC 3-10 Few /HPF (0-2); URINE WBC-REFLEX 0-5 Rare /HPF (0-5)
[2021-05-07 20:51] LABS: HEMATOCRIT 36.2 % (37.0-47.0); HEMOGLOBIN 11.2 gm/dL (12.0-15.0); MCH 26.3 pg (26.0-34.0); MCV 84.9 fL (80.0-100.0); MPV 7.5 fl. (7.2-11.1); NUCLEATED RBCS 0 /100WBC; PLATELET COUNT* 229 thou/uL (150-400); RBC 4.26 mil/uL (4.20-5.00); RDW-CV 15.9 % (10.5-14.5); WBC 10.3 thou/uL (4.0-11.0)
[2021-05-07 21:10] LABS: CALCIUM 8.7 mg/dL (8.5-10.1); CREATININE 0.9 mg/dL (0.6-1.3); POTASSIUM 3.5 mmol/L (3.5-5.1)
[2021-05-07 21:14] LABS: ALBUMIN 2.3 g/dL (3.4-5.0); MAGNESIUM 2.1 mg/dL (1.8-2.4); TOTAL BILIRUBIN 0.3 mg/dL (<0.1-1.0); TOTAL PROTEIN 6.8 g/dL (6.4-8.2)
[2021-05-07 22:33] LABS: ABSOLUTE LYMPHOCYTES 0.9 thou/uL (0.8-5.3); ABSOLUTE MONOCYTES 0.6 thou/uL (0.0-1.2); ABSOLUTE NEUTROPHILS 8.8 thou/uL (1.6-8.1); ANISOCYTOSIS Occasional; PLATELET ESTIMATE ADEQUATE; TOXIC GRANULATION 1+
[2021-05-07 23:30] LABS: BE 7.5 mmol/L (-2 to +3); PCO2 38.6 mmHg (35.0-45.0)
[2021-05-07 23:59] VITALS: BP 105/56
[2021-05-08] VITALS (54 sets, daily range): BP systolic 101–150; BP diastolic 55–82
[2021-05-09] VITALS (77 sets, daily range): BP systolic 93–148; BP diastolic 44–83
[2021-05-09 04:35] LABS: HEMATOCRIT 33.1 % (37.0-47.0); HEMOGLOBIN 10.6 gm/dL (12.0-15.0); MCH 27.2 pg (26.0-34.0); MCHC 32.1 g/dL (28.0-37.0); MCV 84.7 fL (80.0-100.0); MPV 7.3 fl. (7.2-11.1); RBC 3.9 mil/uL (4.20-5.00); RDW-CV 15.7 % (10.5-14.5); WBC 9.1 thou/uL (4.0-11.0)
[2021-05-09 04:47] LABS: CALCIUM 7.8 mg/dL (8.5-10.1); CREATININE 0.8 mg/dL (0.6-1.3)
[2021-05-09 04:51] LABS: POTASSIUM 2.8 mmol/L (3.5-5.1)
[2021-05-09 06:38] LABS: PCO2 38.6 mmHg (35.0-45.0); PO2 81.3 mmHg (75.0-100.0); pH 7.475 (7.340-7.450)
[2021-05-09 14:59] LABS: CALCIUM 7.5 mg/dL (8.5-10.1); CREATININE 0.6 mg/dL (0.6-1.3); MAGNESIUM 1.8 mg/dL (1.8-2.4)
[2021-05-09 15:01] LABS: APTT 26.5 Seconds (25.0-31.3); INR 1.1; PROTIME 12.1 Seconds (9.20-11.50)
[2021-05-09 15:02] LABS: LIPASE 58 U/L (73-393)
--- NOTE | 2021-05-09 16:59 | EKG ---
[place] [address] ELECTROCARDIOGRAM REPORT Name: ABA ANDRES Room: [address] ADM IN M.R.#: [id number] Admission: 05/07/21 Attend Phys: Sammie Cho, Discharge: Date of : 51 Date of Service: 05/07/211950 Report #: [id number] THIS REPORT FOR: //name// [facility] ED Test Date: 2021-05-07 Test Time: 19:51:19 Pat Name: ABA ANDRES Department: Room: [address] Gender: F Field Logistics Coordinator: MR : 1955 Requested By: Leanna Macario Order Number: [id number] MD: Marc Frias Measurements Intervals [place] Rate: 107 P: -8 IN: 169 QRS: -19 QRSD: 101 T: -4 QT: 333 QTc: 445 Interpretive Statements Sinus tachycardia Low voltage, precordial leads Left ventricular hypertrophy Anterior Q waves, possibly due to LVH or anteroseptal scar Possible inferior scar Borderline T abnormalities, inferior leads Borderline ST elevation, lateral leads Compared to ECG 02/02/2021 01:06:59 Poor R wave regression progression is noted over the anterior precordium and inferior Q's are more prominent Electronically Signed On 05-09-2021 16:59:30 CDT by Marc Frias [email or web address] <ELECTRONICALLY SIGNED> By: Marc Frias MD, [facility] 05/09/21 1659 50 50 Marc Frias MD, [facility] /EPI
[2021-05-10] VITALS (66 sets, daily range): BP systolic 64–215; BP diastolic 32–184
[2021-05-10 05:52] LABS: HEMATOCRIT 30.1 % (37.0-47.0); HEMOGLOBIN 9.5 gm/dL (12.0-15.0); MCH 26.5 pg (26.0-34.0); MCHC 31.5 g/dL (28.0-37.0); MCV 84.2 fL (80.0-100.0); MPV 7.8 fl. (7.2-11.1); RBC 3.57 mil/uL (4.20-5.00)
[2021-05-10 06:05] LABS: CALCIUM 7.3 mg/dL (8.5-10.1); CREATININE 0.5 mg/dL (0.6-1.3); POTASSIUM 3.3 mmol/L (3.5-5.1)
--- NOTE | 2021-05-10 12:42 | 2DMMODE ---
[place] [address] 2 D/M-MODE ECHOCARDIOGRAM Name: ABA ANDRES Room: [address] ADM [place].#: [id number] Admission: 05/07/21 Attend Phys: Sammie Cho, Discharge: Date of : 51 Date of Service: 05/10/21 1242 Report #: [id number] THIS REPORT FOR: cc: Roberto Galvan MD, Dennis R MD Liston,Nithin Arvizu MD [facility] ~ APPROVED REPORT Study performed: 05/10/2021 11:25:05 EXAM: Comprehensive 2D, Doppler, and color-flow Echocardiogram Patient Location: In-Patient Room #: 002 Status: routine BSA: 2.25 HR: 69 bpm BP: 137/86 mmHg Rhythm: NSR Other Information Study Quality: Good Indications Dyspnea 2D Dimensions IVSd: 7.87 (7-11mm) LVOT Diam: 19.86 (18-24mm) LVDd: 42.14 mm PWd: 8.76 (7-11mm) Ascending Ao: 33.17 (22-36mm) LVDs: 32.68 (25-40mm) Aortic Root: 33.22 mm Volumes Left Atrial Volume (Systole) LA ESV Index: 16.80 mL/m2 Aortic Valve AoV Peak Aayush.: 0.95 m/s AO Peak Gr.: 3.60 mmHg LVOT Max P.87 mmHg AO Mean Gr.: 1.94 mmHg LVOT Mean P.87 mmHg LVOT Max V: 0.68 m/s AO V2 VTI: 18.05 cm LVOT Mean V: 0.42 m/s EDNA (VTI): 2.48 cm2 LVOT V1 VTI: 14.46 [place] [address] 2 D/M-MODE ECHOCARDIOGRAM Name: ABA ANDRES Room: [address] IN ..#: [id number] Admission: 05/07/21 Attend Phys: Sammie Cho, Discharge: Date of : 51 Date of Service: 05/10/21 1242 Report #: [id number] Mitral Valve E/A Ratio: 0.75 MV Decel. Time: 240.35 ms MV E Max Aayush.: 0.51 m/s MV PHT: 69.70 ms MVA (PHT): 3.16 cm2 TDI E/Lateral E': 8.50 E/Medial E': 8.50 Medial E' Aayush.: 0.06 m/s Lateral E' Aayush.: 0.06 m/s Tricuspid Valve RAP Estimate: 5.00 mmHg TR Peak Gr.: 24.38 mmHg RVSP: 29.00 mmHg PA Pressure: 29.00 mmHg Left Ventricle The left ventricle is normal size. There is moderate global hypokinesis without focal wall motion abnormality. There is normal left ventricular wall thickness. Left ventricular systolic function is moderately decreased. LVEF is 30-35%. Grade I - abnormal relaxation pattern. Right Ventricle The right ventricle is normal size. The right ventricular systolic function is normal. Atria The left atrium size is normal. The right atrium size is normal. Aortic Valve The aortic valve is normal in structure. No aortic regurgitation is present. There is no aortic valvular stenosis. Mitral Valve The mitral valve is normal in structure. Trace mitral regurgitation. No evidence of mitral valve stenosis. Tricuspid Valve The tricuspid valve is normal in structure. Trace tricuspid regurgitation. No pulmonary hypertension. Pulmonic Valve The pulmonary valve is normal in structure. [place] [address] 2 D/M-MODE ECHOCARDIOGRAM Name: ABA ANDRES Room: [address] IN [facility]#: [id number] Admission: 05/07/21 Attend Phys: Sammie Cho, Discharge: Date of : 51 Date of Service: 05/10/21 1242 Report #: [id number] valvular regurgitation. Great Vessels The aortic root is normal in size. IVC is not well visualized. Pericardium There is no pericardial effusion. <Conclusion> There is moderate global hypokinesis without focal wall motion abnormality. Trace mitral regurgitation. Trace tricuspid regurgitation. No pulmonary hypertension. <ELECTRONICALLY SIGNED> By: Nithin Vargas MD, FACC 05/10/21 [phone] Nithin Vargas MD, FACC /INF
[2021-05-10 17:17] LABS: CALCIUM 7.5 mg/dL (8.5-10.1); CREATININE 0.6 mg/dL (0.6-1.3)
[2021-05-10 17:18] LABS: POTASSIUM 4.3 mmol/L (3.5-5.1)
[2021-05-11] VITALS (46 sets, daily range): BP systolic 105–160; BP diastolic 53–82
[2021-05-11 05:45] LABS: HEMATOCRIT 33.9 % (37.0-47.0); HEMOGLOBIN 10.5 gm/dL (12.0-15.0); MCV 83.9 fL (80.0-100.0); MPV 7.9 fl. (7.2-11.1); RBC 4.04 mil/uL (4.20-5.00); RDW-CV 15.9 % (10.5-14.5)
[2021-05-11 06:01] LABS: CALCIUM 7.4 mg/dL (8.5-10.1); CREATININE 0.7 mg/dL (0.6-1.3); POTASSIUM 3.5 mmol/L (3.5-5.1)
[2021-05-11 13:55] LABS: BE 2.1 mmol/L (-2 to +3); PCO2 35.4 mmHg (35.0-45.0); PO2 73.4 mmHg (75.0-100.0); pH 7.475 (7.340-7.450)
[2021-05-11 17:23] LABS: CALCIUM 7.8 mg/dL (8.5-10.1); CREATININE 0.7 mg/dL (0.6-1.3); POTASSIUM 4.1 mmol/L (3.5-5.1)
[2021-05-12] VITALS (19 sets, daily range): BP systolic 92–149; BP diastolic 45–77
[2021-05-12 05:51] LABS: HEMATOCRIT 31.6 % (37.0-47.0); MCH 26.5 pg (26.0-34.0); MCHC 31.8 g/dL (28.0-37.0); MCV 83.2 fL (80.0-100.0); MPV 7.9 fl. (7.2-11.1); RBC 3.79 mil/uL (4.20-5.00)
[2021-05-12 06:04] LABS: CALCIUM 7.8 mg/dL (8.5-10.1); CREATININE 0.6 mg/dL (0.6-1.3); POTASSIUM 3.4 mmol/L (3.5-5.1)
[2021-05-13 00:26] VITALS: BP 107/64
[2021-05-13 04:53] VITALS: BP 152/82
[2021-05-13 06:05] LABS: ABSOLUTE EOSINOPHILS 0.2 thou/uL (0.0-0.7); ABSOLUTE LYMPHOCYTES 1.7 thou/uL (0.8-5.3); ABSOLUTE MONOCYTES 0.6 thou/uL (0.0-1.2); ABSOLUTE NEUTROPHILS 6.1 thou/uL (1.6-8.1); BASOPHILS 0.5 %; HEMATOCRIT 32.7 % (37.0-47.0); HEMOGLOBIN 10.4 gm/dL (12.0-15.0); LYMPHOCYTES 19.9 %; MCH 26.5 pg (26.0-34.0); MCHC 31.9 g/dL (28.0-37.0); MCV 82.9 fL (80.0-100.0); MONOCYTES 6.5 %; MPV 7.4 fl. (7.2-11.1); NUCLEATED RBCS 0 /100WBC; POLYS 71.1 %; RBC 3.94 mil/uL (4.20-5.00); RDW-CV 16.3 % (10.5-14.5); WBC 8.6 thou/uL (4.0-11.0)
[2021-05-13 06:17] LABS: PLATELET COUNT* 380 thou/uL (150-400)
[2021-05-13 06:25] LABS: ANION GAP 10 mmol/L (7-16); BUN 11 mg/dL (7-18); CALCIUM 8.3 mg/dL (8.5-10.1); CHLORIDE 105 mmol/L (98-107); CHOLESTEROL 121 mg/dL (<200); CO2 29 mmol/L (21-32); CREATININE 0.7 mg/dL (0.6-1.3); GLUCOSE 100 mg/dL (70-99); HDL CHOLESTEROL 33 mg/dL (>40); LDL CHOLESTEROL 65 mg/dL (<100); MAGNESIUM 2.1 mg/dL (1.8-2.4); POTASSIUM 3.6 mmol/L (3.5-5.1); SERUM ASSESSMENT CLEAR; SODIUM 144 mmol/L (136-145); TC:HDL 3.7 Ratio (Not establshd); TRIGLYCERIDE 115 mg/dL (<150); VLDL 23 mg/dL (<40)
[2021-05-13 08:00] VITALS: BP 126/65
[2021-05-13 12:00] VITALS: BP 126/71
[2021-05-14 01:31] VITALS: BP 151/83
[2021-05-14 04:49] VITALS: BP 171/90
[2021-05-14 08:00] VITALS: BP 186/89
[2021-05-14 12:00] VITALS: BP 151/76
[2021-05-14 15:31] LABS: HEMATOCRIT 32.4 % (37.0-47.0); HEMOGLOBIN 10.2 gm/dL (12.0-15.0); MCH 26.1 pg (26.0-34.0); MCHC 31.4 g/dL (28.0-37.0); MCV 83.2 fL (80.0-100.0); MPV 6.6 fl. (7.2-11.1); NUCLEATED RBCS 0 /100WBC; PLATELET COUNT* 391 thou/uL (150-400); RBC 3.89 mil/uL (4.20-5.00); RDW-CV 16.3 % (10.5-14.5); WBC 6.6 thou/uL (4.0-11.0)
[2021-05-14 15:39] LABS: CALCIUM 8.2 mg/dL (8.5-10.1); CREATININE 0.5 mg/dL (0.6-1.3); POTASSIUM 3.6 mmol/L (3.5-5.1)
[2021-05-14 16:00] VITALS: BP 142/81
[2021-05-14 16:12] LABS: ABSOLUTE EOSINOPHILS 0.1 thou/uL (0.0-0.7); ABSOLUTE LYMPHOCYTES 2.4 thou/uL (0.8-5.3); ABSOLUTE MONOCYTES 0.6 thou/uL (0.0-1.2); ABSOLUTE NEUTROPHILS 3.6 thou/uL (1.6-8.1)
[2021-05-14 16:14] LABS: PLATELET ESTIMATE ADEQUATE
[2021-05-14 20:30] VITALS: BP 164/91
[2021-05-15] VITALS: BP 154/78
[2021-05-15 04:39] VITALS: BP 152/78
[2021-05-15 05:32] LABS: ABSOLUTE EOSINOPHILS 0.2 thou/uL (0.0-0.7); ABSOLUTE LYMPHOCYTES 1.9 thou/uL (0.8-5.3); ABSOLUTE MONOCYTES 0.9 thou/uL (0.0-1.2); ABSOLUTE NEUTROPHILS 4.3 thou/uL (1.6-8.1); BASOPHILS 0.7 %; EOSINOPHILS 3.3 %; HEMATOCRIT 32.6 % (37.0-47.0); HEMOGLOBIN 10.4 gm/dL (12.0-15.0); LYMPHOCYTES 25.3 %; MCH 26.5 pg (26.0-34.0); MCV 82.8 fL (80.0-100.0); MONOCYTES 12.6 %; MPV 6.7 fl. (7.2-11.1); NUCLEATED RBCS 0 /100WBC; PLATELET COUNT* 425 thou/uL (150-400); POLYS 58.1 %; RBC 3.94 mil/uL (4.20-5.00); RDW-CV 15.7 % (10.5-14.5); WBC 7.3 thou/uL (4.0-11.0)
[2021-05-15 06:13] LABS: CALCIUM 8.5 mg/dL (8.5-10.1); CREATININE 0.6 mg/dL (0.6-1.3); POTASSIUM 3.6 mmol/L (3.5-5.1); TOTAL BILIRUBIN 0.2 mg/dL (<0.1-1.0); TOTAL PROTEIN 6.4 g/dL (6.4-8.2)
[2021-05-15 07:20] VITALS: BP 150/74
[2021-05-15 12:00] VITALS: BP 141/64
[2021-05-15 16:00] VITALS: BP 111/67
[2021-05-15 16:58] LABS: URINE BILIRUBIN NEGATIVE (Negative); URINE BLOOD 1+ (Negative); URINE CLARITY CLEAR; URINE COLOR YELLOW; URINE GLUCOSE-RANDOM NEGATIVE (Negative); URINE KETONES NEGATIVE (Negative); URINE LEUKOCYTES-REFLEX NEGATIVE (Negative); URINE NITRITE-REFLEX NEGATIVE (Negative); URINE PROTEIN NEGATIVE (Negative); URINE UROBILINOGEN 0.2 E.U./dl (0.2-1.0)
[2021-05-15 17:14] LABS: SQUAMOUS >10 Many /LPF (0-3)
[2021-05-15 17:15] LABS: BACTERIA-REFLEX 1-9 Few /HPF (None Seen); CRYSTALS None Seen /LPF (None Seen); HYALINE CASTS 0-3 Few /LPF (None Seen); MUCUS 4-6 Moderate strn/LPF (None Seen); URINE RBC 3-10 Few /HPF (0-2)
[2021-05-15 19:55] VITALS: BP 148/88
[2021-05-16 00:02] VITALS: BP 155/90
[2021-05-16 03:54] VITALS: BP 147/82
[2021-05-16 06:14] LABS: CALCIUM 8.5 mg/dL (8.5-10.1); CREATININE 0.5 mg/dL (0.6-1.3); POTASSIUM 3.8 mmol/L (3.5-5.1)
[2021-05-16 11:30] VITALS: BP 157/79
[2021-05-16 13:46] LABS: ABSOLUTE BASOPHILS 0.1 thou/uL (0.0-0.2); ABSOLUTE EOSINOPHILS 0.3 thou/uL (0.0-0.7); ABSOLUTE LYMPHOCYTES 6.5 thou/uL (0.8-5.3); ABSOLUTE MONOCYTES 1.5 thou/uL (0.0-1.2); ABSOLUTE NEUTROPHILS 6.5 thou/uL (1.6-8.1); BASOPHILS 0.7 %; EOSINOPHILS 2.1 %; HEMATOCRIT 37.8 % (37.0-47.0); HEMOGLOBIN 11.4 gm/dL (12.0-15.0); LYMPHOCYTES 43.6 %; MCH 26.1 pg (26.0-34.0); MCHC 30.2 g/dL (28.0-37.0); MCV 86.3 fL (80.0-100.0); MONOCYTES 9.9 %; MPV 6.6 fl. (7.2-11.1); NUCLEATED RBCS 0 /100WBC; POLYS 43.7 %; RBC 4.38 mil/uL (4.20-5.00); RDW-CV 16.3 % (10.5-14.5); WBC 14.8 thou/uL (4.0-11.0)
[2021-05-16 14:01] LABS: PLATELET COUNT* 516 thou/uL (150-400)
[2021-05-16 14:03] LABS: ALBUMIN 2.2 g/dL (3.4-5.0); POTASSIUM 4.5 mmol/L (3.5-5.1); TOTAL BILIRUBIN 0.2 mg/dL (<0.1-1.0); TOTAL PROTEIN 6.7 g/dL (6.4-8.2)
[2021-05-16 14:17] LABS: CALCIUM 8.4 mg/dL (8.5-10.1); CREATININE 0.6 mg/dL (0.6-1.3)
== END 2021-05-16 20:00 | DRG 177 ==
LOC: M.ERS 19:36 → M.TBA-ER 22:12 → M.ICU 22:12 → M.2W 05-12 20:18
PROVIDERS: Family Medicine; Internal Medicine; Internal Medicine Critical Care Medicine; Pediatrics; Personal Emergency Response Attendant; ADMIT Internal Medicine; ATTEND Internal Medicine
PROC: 02H633Z Insertion of Infusion Device into Right Atrium, Percutaneous Approach (ICD-10-PCS; 2021-05-07)
PROC: 5A09457 Assistance with Respiratory Ventilation, 24-96 Consecutive Hours, Continuous Positive Airway Pressure (ICD-10-PCS; principal; 2021-05-09)
PROC: 5A09357 Assistance with Respiratory Ventilation, Less than 24 Consecutive Hours, Continuous Positive Airway Pressure (ICD-10-PCS; 2021-05-11)
PROC: 5A0935A Assistance with Respiratory Ventilation, Less than 24 Consecutive Hours, High Flow/Velocity Cannula (ICD-10-PCS; 2021-05-12)
PROC: 5A09357 Assistance with Respiratory Ventilation, Less than 24 Consecutive Hours, Continuous Positive Airway Pressure (ICD-10-PCS; 2021-05-12)
PROC: 0BH17EZ Insertion of Endotracheal Airway into Trachea, Via Natural or Artificial Opening (ICD-10-PCS; 2021-05-13)
PROC: 5A0935A Assistance with Respiratory Ventilation, Less than 24 Consecutive Hours, High Flow/Velocity Cannula (ICD-10-PCS; 2021-05-13)
PROC: 5A09357 Assistance with Respiratory Ventilation, Less than 24 Consecutive Hours, Continuous Positive Airway Pressure (ICD-10-PCS; 2021-05-13)
PROC: 5A0935A Assistance with Respiratory Ventilation, Less than 24 Consecutive Hours, High Flow/Velocity Cannula (ICD-10-PCS; 2021-05-14)
DX: J69.0 Pneumonitis due to inhalation of food and vomit (principal); J96.21 Acute and chronic respiratory failure with hypoxia; G82.50 Quadriplegia, unspecified; N39.0 Urinary tract infection, site not specified; Z68.41 Body mass index [BMI] 40.0-44.9, adult; N17.9 Acute kidney failure, unspecified; B96.20 Unspecified Escherichia coli [E. coli] as the cause of diseases classified elsewhere; Z20.822 Contact with and (suspected) exposure to COVID-19; E66.9 Obesity, unspecified; I25.5 Ischemic cardiomyopathy; Z88.0 Allergy status to penicillin; G40.909 Epilepsy, unspecified, not intractable, without status epilepticus; I10 Essential (primary) hypertension; Z87.820 Personal history of traumatic brain injury; E87.6 Hypokalemia